=== PATIENT | female | born 1940 | race Caucasian/White ===

== ENCOUNTER → 2017-01-07 | Outpatient (CLI) | payer BC | END | disposition home or self-care (01) | LOC: C.LABSPEC 17:18 | PROVIDERS: ATTEND Nurse Practitioner Adult Health | DX: R39.15 Urgency of urination (principal); R35.1 Nocturia ==

== ENCOUNTER → 2017-01-10 | Outpatient (CLI) | payer BC | END | disposition home or self-care (01) | LOC: C.LABPBG 11:23 | PROVIDERS: ATTEND Nurse Practitioner Family | DX: N39.0 Urinary tract infection, site not specified (principal) ==

== ENCOUNTER → 2017-02-17 | Outpatient (CLI) | payer BC | END | disposition home or self-care (01) | LOC: C.LABSPEC 17:16 | PROVIDERS: ATTEND Nurse Practitioner Adult Health | DX: R39.15 Urgency of urination (principal); R39.11 Hesitancy of micturition; R35.1 Nocturia ==

== ENCOUNTER → 2017-09-01 | Day surgery (SDC) | payer BC ==
[~2017-09-01] VITALS: Ht 163.8 cm; Wt 59.0 kg
[~2017-09-01] MED LIST: ALPH200C2 PO; CALC500C70 PO; CILO100T PO; CLC6 PO; CYAN10005 PO; DTRSR/2 PO; DULO60CA44 PO; FERR1TAB13 PO; FLM4 PO; IMD/2 PO; LEVO125T72 PO; MIRT15TA2 PO; MULTTAB58 PO; OMEGCAP2 PO; PANT40TA PO; PRAV20TA PO; SACC250C11 PO; TOPROL PO; TRET-55 TOP; budesonide PO; flonase nasal spray INH; iron PO
[2017-09-01 08:27] VITALS: BP 122/71; PULSE 68; TEMP 36.6; O2SAT 93; Ht 163.8 cm; Wt 59.0 kg
--- NOTE | 2017-09-03 12:33 | OPERATIVE REPORT ---
DATE OF OPERATION: 09/01/2017 PROCEDURE PERFORMED: Bacterial overgrowth breath test. PREPROCEDURE DIAGNOSIS: Diarrhea. ENDOSCOPIST: Jassi Austin MD. Baseline breath hydrogen was obtained in parts per million (ppm). This was 0 parts per million. Following a 10-gram dose of lactulose ingestion, serial breath hydrogen was obtained. At 20 minutes --10 ppm, 40 minutes -- 10 ppm, 60 minutes -- 15 ppm, 80 minutes -- 10 ppm, 100 minutes -- 7 ppm, 120 minutes-- 13 ppm, 140 minutes -- 14 ppm, 160 minutes -- 30 ppm, and 180 minutes -- 39 ppm. There were no symptoms following the lactulose challenge. Impression: This study demonstrates no evidence for bacterial overgrowth based on hydrogen breath assay. The breath hydrogen did not significantly rise within 2 hours to at least 20 parts per million above baseline. A second spike is seen beginning at 140 minutes suggesting colonic bacterial metabolism of lactulose. I attest to the content of the Intraoperative Record and any orders documented therein. Any exceptions are noted below. MTDD
== END | disposition home or self-care (01) ==
LOC: C.MTU 08:15
PROVIDERS: ATTEND Internal Medicine Gastroenterology
DX: R19.7 Diarrhea, unspecified (principal)